=== PATIENT | male | born 1980 ===

== ENCOUNTER 2021-01-16 13:48 | Emergency (ER) | payer BC, OTHER ==
[2021-01-16] MEDS ORDERED: Lidocaine 1% 10 ML MDV INJECT ONE (14:56)
[2021-01-16] MEDS ORDERED: Bupivacaine 0.5% 10 ML SDV INJECT ONE (14:57)
--- NOTE | 2021-01-16 15:07 | CR ---
Right fifth finger: 3 views of the right fifth finger were obtained. Comparison: No prior finger or hand exam is available. Mildly comminuted fracture is noted within the base of the distal tuft of the fifth finger. Soft tissue injury is noted. No proximal bony abnormality is seen. Impression: 1. Slightly comminuted fracture within the distal fifth finger. 2. Soft tissue injury. Diagnostic code #3
[2021-01-16] MEDS ORDERED: Diphtheria,Pertussis(Acell),Tetanus Vaccine 0.5 ML Syringe IM ONE (15:13)
--- NOTE | 2021-01-16 15:13 | EDM.PDOC ---
ED HPI GENERAL MEDICAL PROBLEM - General Chief Complaint: Laceration Stated Complaint: RT HAND LAC 2 FINGERS Time Seen by Provider: 01/16/21 14:10 Source of Information: Reports: Patient, RN Notes Reviewed History Limitations: Reports: No Limitations - History of Present Illness INITIAL COMMENTS - FREE TEXT/NARRATIVE: Patient is a 40-year-old male presenting to the emergency department with complaints of laceration to the distal aspect of his left fifth finger as well as laceration on his proximal volar left thumb. He reports that he had injured on a hoist and it began to tip, so he reached out to catch it causing the lacerations. He is unsure when his last tetanus vaccination was. Denies any numbness or tingling. He has full sensation and movement of his thumb. - Related Data Allergies Allergy/AdvReac Type Severity Reaction Status Date / Time No Known Allergies Allergy Verified 01/16/21 14:10 Home Meds: Home Meds Amoxicillin/Potassium Clav [Augmentin 875-125 Tablet] 1 each PO BID 10 Days #19 tablet 01/16/21 [Rx] Hydrocodone/Acetaminophen [Hydrocodone-Acetamin 5-325 mg] 1 each PO Q4H PRN #12 tablet 01/16/21 [Rx] Past Medical History - Past Health History Medical/Surgical History: Denies Medical/Surgical History Social & Family History - Tobacco Use Tobacco Use Status *Q: Former Tobacco User Used Tobacco, but Quit: Yes Month/Year Tobacco Last Used: 3 weeks ago - Recreational Drug Use Recreational Drug Use: No ED ROS GENERAL - Review of Systems Review Of Systems: Comprehensive ROS is negative, except as noted in HPI. ED EXAM, SKIN/RASH Exam: See Below Exam Limited By: No Limitations General Appearance: Alert, WD/WN, No Apparent Distress Respiratory/Chest: No Respiratory Distress, Lungs Clear, Normal Breath Sounds, No Accessory Muscle Use, Chest Non-Tender Cardiovascular: Normal Peripheral Pulses, Regular Rate, Rhythm, No Edema, No Gallop, No JVD, No Murmur, No Rub Extremities: Other (2 cm horizontal laceration to the distal left fifth finger extending through the middle of the fingernail. 2 cm laceration to the proximal aspect of the left ventral thumb. Small amount of active bleeding.) Neurological: Alert, Oriented, CN II-XII Intact, Normal Cognition, Normal Gait, Normal Reflexes, No Motor/Sensory Deficits Psychiatric: Normal Affect, Normal Mood ED SKIN PROCEDURES - Laceration/Wound Repair Left Distal Digit - 5th (Baby) Appearance: Subcutaneous, Mildly Contaminated Distal NVT: Neuro & Vascular Intact Anesthetic Type: Digital Local Anesthesia - Lidocaine (Xylocaine): 1% Plain Local Anesthesia - Bupivicaine (Marcaine): 0.5% Plain Local Anesthetic Volume: 2cc Skin Prep: Chlorhexidine (Hibiciens), Saline, Sterile Drape Exploration/Debridement/Repair: Wound Explored, In a Bloodless Field, No Foreign Material Found Closed with: Sutures Lac/Wound length In cm: 2 Suture Size: 4-0 # of Sutures: 4 Suture Type: Nylon Sterile Dressing Applied: Nurse Tetanus Status Addressed: Yes Complications: No Left Proximal Ventral Digit - 1st (Thumb) Appearance: Subcutaneous Distal NVT: Neuro & Vascular Intact, No Tendon Injury Anesthetic Type: Local Local Anesthesia - Lidocaine (Xylocaine): 1% Plain Local Anesthetic Volume: 3cc Skin Prep: Chlorhexidine (Hibiciens), Saline, Sterile Drape Exploration/Debridement/Repair: Wound Explored, In a Bloodless Field, Minimal Debridement (superificial skin flap removed), No Foreign Material Found Closed with: Sutures Lac/Wound length In cm: 2 # of Sutures: 5 Suture Type: Nylon Sterile Dressing Applied: Nurse Tetanus Status Addressed: Yes Complications: No Course - Vital Signs Last Recorded V/S: Last Vital Signs Temp 96.9 F 01/16/21 14:08 Pulse 80 01/16/21 14:08 Resp 16 01/16/21 14:08 BP 108/66 01/16/21 14:08 Pulse Ox 96 01/16/21 14:08 - Orders/Labs/Meds Meds: Medications Discontinued Medications Generic Name Dose Route Start Last Admin Trade Name Freq PRN Reason Stop Dose Admin Amoxicillin/Clavulanate Potassium 1 tab 01/16/21 16:17 01/16/21 16:47 Amoxicillin/Clavulanate K 875-125 Mg Tab PO 01/16/21 16:18 1 tab ONETIME ONE Administration Bupivacaine HCl 10 ml 01/16/21 14:57 01/16/21 15:27 Bupivacaine 0.5% 10 Ml Sdv INJECT 01/16/21 14:58 10 ml ONETIME ONE Administration Diphtheria/Tetanus/Acell Pertussis 0.5 ml 01/16/21 15:13 01/16/21 15:25 Diphtheria,Pertussis(Acell),Tetanus Vaccine 0.5 Ml Syringe IM 01/16/21 15:14 0.5 ml .ONCE ONE Administration Lidocaine HCl 10 ml 01/16/21 14:56 01/16/21 15:27 Lidocaine 1% 10 Ml Mdv INJECT 01/16/21 14:57 10 ml ONETIME ONE Administration - Re-Assessments/Exams Free Text/Narrative Re-Assessment/Exam: Patient is a 40-year-old male presenting to the emergency department with complaints of laceration to the distal aspect of his left fifth finger as well as proximal aspect of his left volar thumb. On exam, laceration to the distal fifth finger likely has resulted in a tuft fracture. Have ordered x-rays of this finger. He has full strength of flexion extension of the thumb. There is no active bleeding in this laceration. He is unsure when his last tetanus vaccination was, therefore we will update it today. I will plan for digital block of the fifth finger and local anesthetic of the laceration on the left thumb. 01/16/21 16:16 X-ray of the left fifth finger shows a distal tuft fracture. See procedure notes for closure. Patient will be placed in a fingertip splint recommend he wear this for the next 6 weeks. He should follow-up with his primary care provider in 10 days to have wound rechecked and sutures removed. He will be started on Augmentin for infection prophylaxis. Discharge instructions as documented. Departure - Departure Time of Disposition: 16:21 Disposition: Home, Self-Care 01 Condition: Good Clinical Impression: Multiple lacerations, Open fracture of tuft of distal phalanx of finger - Discharge Information *PRESCRIPTION DRUG MONITORING PROGRAM REVIEWED*: Yes *COPY OF PRESCRIPTION DRUG MONITORING REPORT IN PATIENT CHIVO: No Prescriptions: Amoxicillin/Potassium Clav [Augmentin 875-125 Tablet] 1 each PO BID 10 Days #19 tablet Hydrocodone/Acetaminophen [Hydrocodone-Acetamin 5-325 mg] 1 each PO Q4H PRN #12 tablet PRN Reason: Pain Instructions: Finger Fracture, Adult, Laceration Care, Adult, [id number], Nail Bed Injury, [id number] Referrals: Lakisha Ríos, [employer] [Nurse Practitioner] - Forms: ED Department Discharge Additional Instructions: Use ibuprofen and Tylenol routinely for pain. For pain not relieved by this, a short course of hydrocodone with Tylenol has been provided. Take Augmentin as prescribed to prevent infection. Leave initial dressing on your little finger for 2 days. You may then remove and wash gently with soap and water twice daily. Keep the wounds clean and dry. Cover if there is any chance of contamination. Wear the fingertip splint at all times for the next 6 weeks. Watch for signs of infection including increased redness, swelling, or purulent drainage. If these should occur, you should be evaluated either in the clinic or the ER. Follow-up in the clinic in 10 days for wound reassessment and to have the sutures removed. Return to ER as needed. Sepsis Event Note (ED) - Evaluation Sepsis Screening Result: No Definite Risk
[2021-01-16] MEDS ORDERED: Amoxicillin/Clavulanate K 875-125 MG Tab PO ONE (16:17)
== END 2021-01-16 17:00 | disposition home or self-care (01) ==
LOC: JD.ED 13:48
DX: S62.637B Displaced fracture of distal phalanx of left little finger, initial encounter for open fracture (principal); Z87.891 Personal history of nicotine dependence; Z23 Encounter for immunization; W31.89XA Contact with other specified machinery, initial encounter; Y99.0 Civilian activity done for income or pay
CPT/HCPCS: 12002; 73140; 90471; 90715; 99283; A9270; J3490